=== PATIENT | male | born 1965 | race Caucasian/White ===

== ENCOUNTER → 2020-01-22 | Outpatient (CLI) | payer MEDICARE ==
--- NOTE | 2020-01-22 09:58 | CT ---
EXAMINATION TYPE: CT soft tissue neck w con DATE OF EXAM: 01/22/2020 HISTORY: Lump or mass on left side of neck COMPARISON: NONE CT DLP: 532.50 mGycm. Automated Exposure Control for Dose Reduction was Utilized. TECHNIQUE: CT scan of the neck is performed with IV Contrast, patient injected with 100 ml mL of Iso nghia 300, axial images are obtained, coronal and sagittal reformatted images are reviewed. FINDINGS: Airway: No gross abnormality seen. Parotid/submandibular glands: Metallic BB at site of palpable abnormality axial image 61 corresponds to a rim enhancing within enhancing septa cystic lesion in the posterior-inferior left parotid gland measuring 1.8 cm transversely by 1.5 cm AP diameter by 1.7 cm craniocaudal dimension axial image 61 a nd sagittal image 65. There are some prominent adjacent subcentimeter lymph nodes inferiorly and kenan g the posterior deep aspect sagittal image 62. No surrounding inflammatory change. Right parotid glan d is within normal limits. Submandibular glands symmetric and somewhat prominent in size with no surr ounding inflammatory change or concerning masses. Carotid/Vascular Structures: No significant focal plaque at carotid bulb level. Dominant left vertebr al artery is noted. Osseous Structures: Moderate disc space narrowing C5-C6 and C6-C7 levels with mild to moderate spurri ng Other: No definitive greater than 1 cm neck adenopathy. Pharyngeal fat spaces are maintained. Scatter ed prominent but subcentimeter lymph nodes throughout the neck bilaterally. IMPRESSION: There is 1.8 cm cystic mass posterior inferior left parotid gland. Differential includes neoplasm such as Warthin's tumor. Advise ENT referral.
== END | disposition home or self-care (01) ==
LOC: RADCTMAIN 08:22
PROVIDERS: ATTEND Family Medicine
DX: K11.8 Other diseases of salivary glands (principal)
CPT/HCPCS: 70491; Q9967

== ENCOUNTER → 2022-01-28 | Outpatient (CLI) | payer MEDICARE ==
--- NOTE | 2022-01-29 08:13 | XR ---
EXAMINATION TYPE: XR chest 2V DATE OF EXAM: 01/28/2022 COMPARISON: NONE TECHNIQUE: PA and lateral views submitted. HISTORY: Cough FINDINGS: The lungs are clear and there is no pneumothorax or pleural effusion. Diffuse hyperinflation. Hyper trophic and degenerative changes spine. Heart size normal. No overt failure. Linear subsegmental barrientos ges right lung base. IMPRESSION: 1. Linear subsegmental changes right lung base favor atelectasis over early infiltrate correlate clin ically.. 2. Correlate for COPD.
== END | disposition home or self-care (01) ==
LOC: RADXRYALE 16:06
PROVIDERS: ATTEND Physician Assistant
DX: R05.9 Cough, unspecified (principal)
CPT/HCPCS: 71046

== ENCOUNTER → 2024-01-04 | Outpatient (CLI) | payer MEDICARE ==
--- NOTE | 2024-01-04 14:53 | CTL ---
EXAMINATION TYPE: CT Low Dose Lung DATE OF EXAM ORDERED: 01/04/2024 HISTORY: Nicotine dependence, current smoker, 30 pack-year history. Lung cancer screening CT DLP: 121.[address] CTDI: 3.1 mGy Automated exposure control for dose reduction was used. SCREENING VISIT: First screening visit COMPARISON: Chest radiograph 01/28/2022 TECHNIQUE: Low dose computed tomography scan was performed through the chest at 1 mm thick sections a nd reconstructed images in multiple planes at 1 mm and [address] DIAGNOSTIC QUALITY: Satisfactory FINDINGS: Nodules: No clinically suspicious pulmonary nodules. LUNGS: COPD: Severity: Mild Fibrosis: Severity: None Lymph nodes: None Other findings: Medial left lower lobe atelectatic change. Posterior right lower lobe linear scarring and atelectasis. Linear scarring along the right mid lung. RIGHT PLEURAL SPACE: Effusion: None Calcification: None Thickening: None Pneumothorax: None LEFT PLEURAL SPACE: Effusion: None Calcification: None Thickening: None Pneumothorax: None HEART: Heart Size: Normal Coronary Calcification: Small Pericardial Effusion: None OTHER FINDINGS: Upper abdomen: None Bony thorax: None Supraclavicular region: None Other: None IMPRESSION: 1. No clinically suspicious pulmonary nodule. 2. Mild COPD changes with scattered regions of linear scarring or atelectasis. CT LUNG RAD AND CT CHEST RECOMMENDATION: Lung-Rad 1 Negative: Continue annual screening with LDCT in 12 months. S Modifier (other clinically significant findings): None [facility], , 01/04/2024 2:50 PM
== END | disposition home or self-care (01) ==
LOC: RADCTMAIN 14:13
PROVIDERS: ATTEND Family Medicine
DX: Z12.2 Encounter for screening for malignant neoplasm of respiratory organs (principal); J44.9 Chronic obstructive pulmonary disease, unspecified; F17.210 Nicotine dependence, cigarettes, uncomplicated
CPT/HCPCS: 71271